=== PATIENT | female | born 1980 | race Caucasian/White ===

== ENCOUNTER 2017-01-25 20:56 | Emergency (ER) | payer BC ==
[~2017-01-25] VITALS: Ht 162.6 cm; Wt 63.5 kg
[2017-01-25 21:09] VITALS: BP 102/76
== END 2017-01-25 21:53 | disposition home or self-care (01) ==
LOC: ER 20:59
DX: J02.9 Acute pharyngitis, unspecified (principal); Z88.0 Allergy status to penicillin
CPT/HCPCS: 86403-TC; 87070-TC; A4606; Z7610